=== PATIENT | female | born 1970 | race Caucasian/White ===

== ENCOUNTER 2017-02-11 10:02 | Outpatient (CLI) | payer OTHER | END 2017-02-11 10:03 | disposition home or self-care (01) | LOC: BICMAMMO 10:02 | PROVIDERS: ATTEND Obstetrics & Gynecology | DX: N63.10 Unspecified lump in the right breast, unspecified quadrant (principal); N64.4 Mastodynia | CPT/HCPCS: 77066; G0279 ==

== ENCOUNTER 2018-08-23 18:55 | Emergency (ER) | payer OTHER ==
[2018-08-23 19:43] LABS: Bilirubin Negative (Negative); Blood, Urine Trace (Negative); Clarity Clear (Clear); Glucose, Urine (Dipstick) Negative (Negative); Leukocyte Negative (Negative); Nitrite Negative (Negative); Protein, Urine (Dipstick) Negative (Neg-Trace); Urobilinogen 0.2 mg/dL (Less than 2)
[2018-08-23 19:44] LABS: #Basophils 0.1 thou/uL (0.0-0.2); #Eosinphils 0.1 thou/uL (0.0-0.7); #Lymphocytes 1.9 thou/uL (1.20-3.40); #Monocytes 0.6 thou/uL (0.11-0.59); #Neutrophils 3.4 thou/uL (1.40-6.50); %Basophils 0.9 % (0.0-1.0); %Eosinophils 1.6 % (0.0-10.0); %Monocytes 9.1 % (0.0-10.0); %Neutrophils 56.4 % (42.0-75.0); Hemoglobin 12.9 g/dL (12.0-16.0); Mean Corpuscular Hemoglobin 31.9 pg (27.0-31.0); Mean Corpuscular Volume 93.7 fL (78.0-98.0); Mean Platelet Volume 8.1 fL (7.4-10.4); Platelet Count 274 thou/uL (130-400); RBC Distribution Width 12.3 % (11.5-14.5); Red Blood Cell (RBC) Count 4.05 mill/uL (4.20-5.40)
[2018-08-23 19:45] LABS: RBC/HPF 0-3 HPF (0-3); Squamous Epithelial 0-3 HPF (0-3); WBC/HPF 0-3 HPF (0-3)
[2018-08-23 19:46] LABS: Bacteria/HPF 1+ HPF (None Seen)
--- NOTE | 2018-08-23 19:55 | CT ---
CT ABDOMEN AND PELVIS WITHOUT CONTRAST: 08/23/18 HISTORY: Right flank pain. COMPARISON: None. FINDINGS: Lung bases are clear. No pericardial effusion. Moderate right hydroureteronephrosis due to a partiall y obstructing calculus distal right ureter within 1 cm of the ureterovesicular junction measuring 2 x 3 mm. There is a 2 x 2 mm calculus within the inferior right renal collecting system. There is also a punctate 1 mm calculus interpolar right renal collecting system. Punctate 1-2 mm calculus inferior left renal collecting system. No left hydroureteronephrosis. No urinary bladder calculus. Mild diverticular disease sigmoid colon without active current inflammation. The appendix is likely visualized and appears normal. No dilated loops of large or small bowel. No fr ee intraperitoneal gas or fluid. Noncontrast evaluation of the liver, gallbladder, spleen, and pancre as are unremarkable. No acute osseous abnormality. IMPRESSION: Partially obstructive right distal ureteral calculus within 1 cm of the ureterovesicular junction angelique suring 2 x 3 mm. POS: HOME
[2018-08-23 19:59] LABS: ALT (SGPT) 19 U/L (8-55); AST (SGOT) 19 U/L (5-34); Albumin 4.1 g/dL (3.5-5.0); Alkaline Phosphatase 70 U/L (40-150); Anion Gap 12 mmol/L (10-20); BUN (Urea Nitrogen) 11 mg/dL (7.0-18.7); Bilirubin, Total 0.3 mg/dL (0.2-1.2); Calc. Creatinine Clearance 0 mL/min (70-130); Calcium 9.7 mg/dL (7.8-10.44); Carbon Dioxide 27 mmol/L (22-29); Chloride 107 mmol/L (98-107); Estimated GFR-MDRD Greater than 90; Glucose 94 mg/dL (70-105); Potassium 3.9 mmol/L (3.5-5.1); Protein, Total 7.1 g/dL (6.0-8.3); Sodium 142 mmol/L (136-145)
== END 2018-08-23 20:15 | disposition home or self-care (01) ==
LOC: SCSER 18:55
DX: N13.2 Hydronephrosis with renal and ureteral calculous obstruction (principal); F90.9 Attention-deficit hyperactivity disorder, unspecified type; Z79.899 Other long term (current) drug therapy
CPT/HCPCS: 36415; 74176; 80053; 81003; 81015; 85025; 87086